=== PATIENT | female | born 1985 | race Two or more races ===

== ENCOUNTER 2018-12-31 07:22 | Outpatient (CLI) | payer OTHER | END 2018-12-31 07:33 | disposition home or self-care (01) | LOC: LAB 07:22 | DX: Z83.49 Family history of other endocrine, nutritional and metabolic diseases (principal); Z00.00 Encounter for general adult medical examination without abnormal findings; Z13.6 Encounter for screening for cardiovascular disorders; Z12.11 Encounter for screening for malignant neoplasm of colon ==

== ENCOUNTER 2019-12-17 10:00 | Outpatient (CLI) | payer OTHER | END 2019-12-17 15:47 | disposition home or self-care (01) | LOC: PPH VACUNA 10:00 | DX: Z23 Encounter for immunization (principal) ==

== ENCOUNTER 2020-02-15 09:27 | Outpatient (CLI) | payer OTHER | END 2020-02-15 09:33 | disposition home or self-care (01) | LOC: NUCLEAR 09:27 | DX: E05.80 Other thyrotoxicosis without thyrotoxic crisis or storm (principal) | CPT/HCPCS: 78012; A9531 ==

== ENCOUNTER → 2020-02-16 | Outpatient (CLI) | payer OTHER | END | disposition home or self-care (01) | LOC: NUCLEAR 09:00 | DX: E05.80 Other thyrotoxicosis without thyrotoxic crisis or storm (principal) | CPT/HCPCS: 78013; A9512 ==

== ENCOUNTER 2020-04-12 07:25 | Outpatient (CLI) | payer OTHER | END 2020-04-12 07:39 | disposition home or self-care (01) | LOC: LAB 07:25 | DX: E03.8 Other specified hypothyroidism (principal); E05.90 Thyrotoxicosis, unspecified without thyrotoxic crisis or storm ==

== ENCOUNTER 2020-07-28 07:11 | Outpatient (CLI) | payer OTHER | END 2020-07-28 07:15 | disposition home or self-care (01) | LOC: LAB 07:11 | PROVIDERS: ATTEND Internal Medicine | DX: E05.80 Other thyrotoxicosis without thyrotoxic crisis or storm (principal); R19.7 Diarrhea, unspecified ==

== ENCOUNTER 2020-08-18 07:01 | Emergency (ER) | payer OTHER ==
[~2020-08-18] VITALS: Ht 162.6 cm; Wt 59.0 kg
[2020-08-18] MEDS ORDERED: DICLOFENAC POTA50 MG PO (11:03)
== END 2020-08-18 13:35 | disposition home or self-care (01) ==
LOC: ER 07:01
DX: R00.2 Palpitations (principal); M94.0 Chondrocostal junction syndrome [Tietze]

== ENCOUNTER 2020-09-05 15:26 | Emergency (ER) | payer OTHER ==
[~2020-09-05] VITALS: Ht 165.1 cm; Wt 56.7 kg
[~2020-09-05 15:26] MED LIST: DICLOFENAC POTA50 MG PO
== END 2020-09-05 18:32 | disposition home or self-care (01) ==
LOC: ER 15:26
DX: S80.01XA Contusion of right knee, initial encounter (principal); S70.02XA Contusion of left hip, initial encounter; W23.0XXA Caught, crushed, jammed, or pinched between moving objects, initial encounter; Y93.89 Activity, other specified; Y92.238 Other place in hospital as the place of occurrence of the external cause; Y99.8 Other external cause status

== ENCOUNTER 2020-11-14 11:58 | Outpatient (CLI) | payer OTHER | END 2020-11-14 12:33 | disposition home or self-care (01) | LOC: RAD 11:58 | PROVIDERS: ATTEND Physical Medicine & Rehabilitation | DX: M41.85 Other forms of scoliosis, thoracolumbar region (principal); M54.5 Low back pain; M54.2 Cervicalgia; M54.6 Pain in thoracic spine ==

== ENCOUNTER 2021-02-24 09:00 | Outpatient (CLI) | payer OTHER | END 2021-02-24 09:30 | disposition home or self-care (01) | LOC: PPH VACUNA 09:00 | PROVIDERS: ATTEND Emergency Medicine Pediatric Emergency Medicine | DX: Z23 Encounter for immunization (principal) | CPT/HCPCS: 90686; G0008 ==

== ENCOUNTER 2021-03-27 08:33 | Outpatient (CLI) | payer OTHER | END 2021-03-27 08:34 | disposition home or self-care (01) | LOC: LAB 08:33 | PROVIDERS: ATTEND Preventive Medicine Occupational Medicine | DX: U07.1 COVID-19 (principal) ==

== ENCOUNTER 2021-05-15 06:25 | Outpatient (CLI) | payer OTHER | END 2021-05-15 06:26 | disposition home or self-care (01) | LOC: LAB 06:25 | PROVIDERS: ATTEND Physical Medicine & Rehabilitation | DX: Z00.00 Encounter for general adult medical examination without abnormal findings (principal) ==

== ENCOUNTER 2021-05-15 08:00 | Outpatient (CLI) | payer OTHER | END 2021-05-15 08:30 | disposition home or self-care (01) | LOC: PPH VACUNA 08:00 | PROVIDERS: ATTEND Emergency Medicine Pediatric Emergency Medicine | DX: Z23 Encounter for immunization (principal) ==

== ENCOUNTER 2021-12-13 12:58 | Outpatient (CLI) | payer OTHER | END 2021-12-13 13:03 | disposition home or self-care (01) | LOC: PPH VACUNA 12:58 | PROVIDERS: ATTEND Emergency Medicine Pediatric Emergency Medicine | DX: Z23 Encounter for immunization (principal) ==

== ENCOUNTER 2022-03-09 06:18 | Outpatient (CLI) | payer OTHER ==
[~2022-03-09 06:18] MED LIST changes: +INTESTINEX680 M1 PO; +ONDANSETRON ODT4 MG PO; +PEPCID AC20 MG PO
== END 2022-03-09 06:19 | disposition home or self-care (01) ==
LOC: LAB 06:18
PROVIDERS: ATTEND General Practice
DX: Z00.00 Encounter for general adult medical examination without abnormal findings (principal); E78.5 Hyperlipidemia, unspecified; E55.9 Vitamin D deficiency, unspecified; R42 Dizziness and giddiness; N39.0 Urinary tract infection, site not specified; R10.9 Unspecified abdominal pain

== ENCOUNTER 2022-03-09 07:06 | Outpatient (CLI) | payer OTHER | END 2022-03-09 07:13 | disposition home or self-care (01) | LOC: SONOGRAMA 07:06 | PROVIDERS: ATTEND General Practice | DX: R10.9 Unspecified abdominal pain (principal) ==

== ENCOUNTER 2022-09-04 08:49 | Outpatient (CLI) | payer OTHER | END 2022-09-04 08:52 | disposition home or self-care (01) | LOC: LAB 08:49 | PROVIDERS: ATTEND Preventive Medicine Occupational Medicine | DX: U07.1 COVID-19 (principal) ==

== ENCOUNTER 2022-12-28 10:35 | Outpatient (CLI) | payer OTHER ==
[~2022-12-28 10:35] MED LIST changes: +NORFLEX100MG PO
== END 2022-12-28 10:45 | disposition home or self-care (01) ==
LOC: PPH VACUNA 10:35
PROVIDERS: ATTEND Emergency Medicine Pediatric Emergency Medicine
DX: Z23 Encounter for immunization (principal)

== ENCOUNTER → 2023-01-09 06:22 | Outpatient (CLI) | payer OTHER ==
[2023-01-09 07:40] LABS: PH,URINE 5.5 (5.0-8.0); URINE APPEARANCE Clear; URINE BILIRRUBIN Negative (NEGATIVE); URINE BLOOD Small; URINE COLOR Yellow; URINE GLUCOSE Negative (NEGATIVE); URINE LEUKOCYTE Negative; URINE NITRATE Negative; URINE PROTEIN Negative (NEGATIVE); URINE UROBILINOGEN 0.2 E.U./dl
[2023-01-09 07:41] LABS: URINE BACTERIA 55.4 uL (0.0-1933); URINE RBC 33.3 uL (0.0-20.8); URINE WBC 3.2 uL (0.0-23.2)
[2023-01-09 07:55] LABS: HEMATOCRIT 33.7 % (36.0-45.00); HEMOGLOBIN 10.7 g/dL (12.0-15.00); MEAN CELL VOLUME 84.8 fL (80.00-100.00); MEAN CORPUSCULAR HGB CONC 31.8 g/dl (32.0-36.0); PLATELET COUNT 364 K/uL (150-450); RED BLOOD COUNT 3.98 M/uL (4.00-6.00); RED CELL DISTRIBUTION WIDTH 14.8 % (11.5-14.5)
[2023-01-09 08:28] LABS: ALBUMIN 3.6 gm/dL (3.4-5.0); BILIRUBIN TOTAL 0.8 mg/dL (0.3-1.2); BILIRUBIN,CONJUGATED 0.22 mg/dL (0.0-0.2); BILIRUBIN,UNCONJUGATED 0.58 mg/dL (0.0-0.6); CALCIUM 9.1 mg/dL (8.5-10.1); CHOL HDL RATIO 2.6 (0-5.0); CREATININE SERUM 0.72 mg/dL (0.55-1.02); GFR 92.18; GLOBULINA 3.2 G/DL (2.4-3.5); POTASSIUM 4.14 mEq/L (3.5-5.1); T4 TOTAL 5.97 UG/DL (4.8-13.9); TOTAL PROTEIN 6.8 gm/dL (6.4-8.2); TSH 1.4 uIU/mL (0.358-3.74)
[2023-01-09 14:25] LABS: T3 TOTAL 0.881 ng/ml (0.846-2.02); VITAMIN D3 25 HYDROXY 29.34 ng/ml (30-120)
== END | disposition home or self-care (01) ==
LOC: LAB 06:22
PROVIDERS: ATTEND General Practice
DX: E78.5 Hyperlipidemia, unspecified (principal); E55.9 Vitamin D deficiency, unspecified; N39.0 Urinary tract infection, site not specified; R42 Dizziness and giddiness; R10.9 Unspecified abdominal pain; R97.0 Elevated carcinoembryonic antigen [CEA]

== ENCOUNTER 2023-05-28 09:19 | Emergency (ER) | payer OTHER ==
[~2023-05-28] VITALS: Ht 162.6 cm; Wt 59.0 kg
[2023-05-28] MEDS ORDERED: METHYLPREDNISOLONE SOD SUCC 125 MG VIAL IM STA (09:52)
[2023-05-28] MEDS ORDERED: GUAIFENESIN 200 MG/10 ML BLIST.PACK PO STA (09:52)
[2023-05-28] MEDS ORDERED: CETIRIZINE HCL 5 MG/5 ML ML PO STA (09:55)
[2023-05-28] MEDS ORDERED: IPRATROPIUM/ALBUTEROL SULFATE 3 ML AMPUL.NEB IH SCH (10:00)
[2023-05-28 10:36] LABS: HEMATOCRIT 37.6 % (36.0-45.00); HEMOGLOBIN 12.8 g/dL (12.0-15.00); MEAN CELL VOLUME 87.4 fL (80.00-100.00); MEAN CORPUSCULAR HEMOGLOBIN 29.8 pg (27.00-32.0); MEAN CORPUSCULAR HGB CONC 34.1 g/dl (32.0-36.0); PLATELET COUNT 351 K/uL (150-450); RED CELL DISTRIBUTION WIDTH 13.5 % (11.5-14.5)
[2023-05-28] MEDS ORDERED: ALBUTEROL0.63 MG/3 IH (12:41)
[2023-05-28] MEDS ORDERED: BENZONATATE200 M1 PO (12:41)
== END 2023-05-28 12:57 | disposition home or self-care (01) ==
LOC: ER 09:19
PROVIDERS: General Practice
DX: R05.8 Other specified cough (principal); R06.02 Shortness of breath; Z20.822 Contact with and (suspected) exposure to COVID-19

== ENCOUNTER 2024-01-20 09:05 | Outpatient (CLI) | payer OTHER ==
[~2024-01-20 09:05] MED LIST changes: +ALBUTEROL0.63 MG/3 IH; +BENZONATATE200 M1 PO; +NAPR500T14 PO
== END 2024-01-20 09:30 | disposition home or self-care (01) ==
LOC: PPH VACUNA 09:05
PROVIDERS: ATTEND Emergency Medicine Pediatric Emergency Medicine
DX: Z23 Encounter for immunization (principal)

== ENCOUNTER 2024-02-10 14:56 | Outpatient (CLI) | payer OTHER | END 2024-02-10 14:58 | disposition home or self-care (01) | LOC: SONOGRAMA 14:56 | PROVIDERS: ATTEND Physical Medicine & Rehabilitation | DX: M77.01 Medial epicondylitis, right elbow (principal); M77.8 Other enthesopathies, not elsewhere classified ==

== ENCOUNTER → 2024-11-24 11:47 | Outpatient (CLI) | payer OTHER ==
[2024-11-26 07:10] LABS: HEPATITIS A ANTIBODY IGG Negative (Negative); HEPATITIS B SURFACE ANTIBODY Non Reactive (.); HEPATITIS C VIRUS ANTIBODY Non Reactive (Non Reactive)
== END | disposition home or self-care (01) ==
LOC: LAB 11:47
DX: A64 Unspecified sexually transmitted disease (principal); B19.9 Unspecified viral hepatitis without hepatic coma; Z11.59 Encounter for screening for other viral diseases; Z13.89 Encounter for screening for other disorder

== ENCOUNTER 2025-01-15 11:00 | Outpatient (CLI) | payer OTHER | END 2025-01-15 11:10 | disposition home or self-care (01) | LOC: PPH VACUNA 11:00 | PROVIDERS: ATTEND Emergency Medicine Pediatric Emergency Medicine | DX: Z23 Encounter for immunization (principal) ==